=== PATIENT | male | born 1980 | race Two or more races ===

== ENCOUNTER 2024-12-14 18:17 | Emergency (ER) | payer OTHER ==
[2024-12-14] MEDS: Diphtheria,Pertussis(Acell),Tetanus Vaccine 0.5 ML Syringe IM ONE (19:35)
== END 2024-12-14 20:40 | disposition home or self-care (01) ==
LOC: JD.ED 18:17
DX: S62.635A Displaced fracture of distal phalanx of left ring finger, initial encounter for closed fracture (principal); Z79.899 Other long term (current) drug therapy; W23.1XXA Caught, crushed, jammed, or pinched between stationary objects, initial encounter
CPT/HCPCS: 12001; 73140; 90471; 90715; 96372; 99283; J0690; J2003